=== PATIENT | female | born 1990 | race Hispanic/Latino ===

== ENCOUNTER 2020-07-09 07:33 | Outpatient (CLI) | payer OTHER ==
--- NOTE | 2020-07-09 08:11 | ULT ---
ULTRASOUND OBSTETRICAL COMPLETE: DATE: 07/09/2020 HISTORY: 30-year-old female ICD-10: "O09.892 supervision of other high-risk , second trimest er. Complete anatomy, size and dates, cervical length" FINDINGS: Maternal adnexa: Not visualized. number: [email or web address] lie: Cephalic Maternal cervix: 4 cm. Closed. Placenta: Posterior. No placenta previa. Distal tip of placenta 4.5 cm proximal to the internal cervi nilam os. Amniotic fluid volume: CIERA = 12.5 cm heart rate: 127 bpm The following anatomy is visualized, with no evidence of anomalies: Head, cerebellum, lateral ventricles, four-chamber heart, stomach, kidneys, cord insertion, bladder, cervical spine, thoracic spine, lumbar spine, sacrum, nose and lips, upper extremities, lower extremities, and three-vessel cord. biometry: Biparietal diameter (BPD): 4.7 cm 20 w 1 d Head circumference (HC): 17.1 cm 19 w 5 d Abdominal circumference (AC): 15.3 cm 20 w 4 d Femur length (FL): 3.2 cm 20 w 1 d Average ultrasound age (AUA): 20 w 1 d Estimated date of delivery (RADHA): 11/25/2020 Estimated weight (EFW): 340 g +/- 50 g IMPRESSION: 1) Live 2nd trimester intrauterine gestation. 2) Estimated gestational age of 20 weeks, 1 days 3) Vertex lie. 4) no anatomic abnormality identified.
== END 2020-07-09 07:34 | disposition home or self-care (01) ==
LOC: BICULT 07:33
PROVIDERS: ATTEND Family Medicine
DX: O09.892 Supervision of other high risk pregnancies, second trimester (principal); Z3A.20 20 weeks gestation of pregnancy
CPT/HCPCS: 76805

== ENCOUNTER 2021-01-22 19:30 | Emergency (ER) | payer MEDICAID ==
[2021-01-22] MEDS ORDERED: Ketorolac Tromethamine 30 MG/ML VIAL ONE (21:30)
[2021-01-22] MEDS ORDERED: Clindamycin/D5W 900 mg/50 ml Premix Bag ONE (21:30)
[2021-01-22 21:54] LABS: #Lymphocytes 0.9 thou/uL (1.20-3.40); #Monocytes 0.4 thou/uL (0.11-0.59); %Basophils 0.5 % (0.0-1.0); %Eosinophils 0.2 % (0.0-10.0); %Lymphocytes 21.2 % (21.0-51.0); %Monocytes 9.4 % (0.0-10.0); %Neutrophils 68.7 % (42.0-75.0); Hemoglobin 10.7 g/dL (12.0-16.0); Mean Corpuscular HGB CONC 32.3 g/dL (32.0-36.0); Mean Corpuscular Hemoglobin 26.5 pg (27.0-31.0); Mean Platelet Volume 9.8 fL (7.4-10.4); Platelet Count 262 thou/uL (130-400); RBC Distribution Width 14.1 % (11.5-14.5); Red Blood Cell (RBC) Count 4.01 mill/uL (4.20-5.40); White Blood Cell (WBC) Count 4.4 thou/uL (4.8-10.8)
[2021-01-22 22:16] LABS: ALT (SGPT) 16 U/L (8-55); AST (SGOT) 25 U/L (5-34); Albumin 3.5 g/dL (3.5-5.0); Alkaline Phosphatase 109 U/L (40-110); Anion Gap 10 mmol/L (10-20); BUN (Urea Nitrogen) 8 mg/dL (7.0-18.7); Bilirubin, Total 0.3 mg/dL (0.2-1.2); Calc. Creatinine Clearance 0 mL/min (70-130); Calcium 8.6 mg/dL (7.8-10.44); Carbon Dioxide 25 mmol/L (22-29); Chloride 105 mmol/L (98-107); Globulin 6.4 g/dL (2.4-3.5); Glucose 116 mg/dL (70-105); Potassium 3.7 mmol/L (3.5-5.1); Protein, Total 9.9 g/dL (6.0-8.3); Sodium 136 mmol/L (136-145)
== END 2021-01-22 22:43 | disposition home or self-care (01) ==
LOC: ERS 19:30
DX: L03.115 Cellulitis of right lower limb (principal)
CPT/HCPCS: 80053; 85025; 96365; 96375; J1885; J3490

== ENCOUNTER 2022-11-04 12:46 | Emergency (ER) | payer OTHER, SELFPAY ==
[2022-11-04] MEDS ORDERED: diphenhydrAMINE 25 MG CAP ONE (13:06)
[2022-11-04] MEDS ORDERED: predniSONE 20 MG TAB ONE (14:54)
== END 2022-11-04 14:50 | disposition home or self-care (01) ==
LOC: ERS 12:46
DX: R21 Rash and other nonspecific skin eruption (principal); E03.9 Hypothyroidism, unspecified
CPT/HCPCS: 99282; J7512

== ENCOUNTER 2022-11-06 07:56 | Emergency (ER) | payer SELFPAY ==
[2022-11-06] MEDS ORDERED: Ketorolac Tromethamine 30 MG/ML VIAL ONE (08:49)
[2022-11-06] MEDS ORDERED: Dexamethasone 4 mg/ml Vial ONE (08:49)
[2022-11-06 09:07] LABS: #Basophils 0.1 thou/uL (0.0-0.2); #Monocytes 0.4 thou/uL (0.11-0.59); #Neutrophils 3.7 thou/uL (1.40-6.50); %Basophils 0.9 % (0.0-1.0); %Eosinophils 0.3 % (0.0-10.0); %Lymphocytes 32.8 % (21.0-51.0); %Monocytes 6.8 % (0.0-10.0); %Neutrophils 59.2 % (42.0-75.0); Hemoglobin 11.4 g/dL (12.0-16.0); Mean Corpuscular HGB CONC 33.7 g/dL (32.0-36.0); Mean Corpuscular Hemoglobin 29.1 pg (27.0-31.0); Mean Corpuscular Volume 86.4 fl (78.0-98.0); Mean Platelet Volume 10.9 fL (7.4-10.4); Platelet Count 205 10x3/uL (130-400); RBC Distribution Width 14.3 % (11.5-14.5); Red Blood Cell (RBC) Count 3.92 mill/uL (4.20-5.40); White Blood Cell (WBC) Count 6.2 10x3/uL (4.8-10.8)
[2022-11-06 09:37] LABS: BHCG - Serum Negative (NEGATIVE); Pregs Control Background? CLEAR/WHITE (CLR/WHITE); Pregs Control Bar Appear? YES (CONTROL BAR)
[2022-11-06 09:38] LABS: Calcium 8.1 mg/dL (7.8-10.44); Chloride 109 mmol/L (98-107); Potassium 3.4 mmol/L (3.5-5.1); Sodium 136 mmol/L (136-145)
[2022-11-06 09:39] LABS: Globulin 5.7 g/dL (2.4-3.5); Glucose 99 mg/dL (70-105); Protein, Total 8.7 g/dL (6.0-8.3)
[2022-11-06 09:40] LABS: Anion Gap 11 mmol/L (10-20); Carbon Dioxide 19 mmol/L (22-29)
[2022-11-06 09:41] LABS: Bilirubin, Total 0.3 mg/dL (0.2-1.2)
[2022-11-06 09:42] LABS: Alkaline Phosphatase 81 U/L (40-110)
[2022-11-06 09:43] LABS: BUN (Urea Nitrogen) 10 mg/dL (7.0-18.7); Calc. Creatinine Clearance 0 mL/min (70-130); Estimated GFR 121
[2022-11-06 09:44] LABS: AST (SGOT) 16 U/L (5-34)
[2022-11-06 09:45] LABS: ALT (SGPT) 11 U/L (8-55); CK (CPK) 26 U/L (29-168)
[2022-11-06 10:32] LABS: INR-International Normal Ratio 1.1; Prothrombin Time 14.9 sec (12.0-14.7)
[2022-11-06 10:33] LABS: PTT 33.8 sec (22.9-36.1)
[2022-11-06] MEDS ORDERED: HYDROcodone/Acetaminophen 5/325 mg Tablet ONE (11:24)
[2022-11-06 13:21] LABS: Syphilis Antibody Nonreactive (Nonreactive); Syphilis Antibody Index 0.06 S/CO (<1.00 Non-Reactive)
== END 2022-11-06 12:27 | disposition home or self-care (01) ==
LOC: ERS 07:56
DX: I77.6 Arteritis, unspecified (principal); E03.9 Hypothyroidism, unspecified
CPT/HCPCS: 36415; 71045; 80053; 82550; 83605; 84484; 84703; 85025; 85610; 85730; 86140; 86618; 86780; 93005; 96372; 96374; J1100; J1885

== ENCOUNTER 2025-03-28 06:30 | Inpatient (IN) | payer SELFPAY ==
[2025-03-28 07:24] VITALS: BMI 27.4
[2025-03-28] MEDS ORDERED: Ondansetron PF 4 MG/2 ML Vial IVP PRN (07:55)
[2025-03-28] MEDS ORDERED: Guaifenesin DM 100-10/5 ML UDCUP PO PRN (07:55)
[2025-03-28] MEDS ORDERED: Acetaminophen 325 MG TAB PO PRN (07:55)
[2025-03-28] MEDS ORDERED: Senokot S 8.6-50 MG TAB PO PRN (07:55)
[2025-03-28] MEDS: Enoxaparin 40 MG (0.4 mL) SYRINGE SC SCH (08:33)
[2025-03-28 08:43] LABS: Anion Gap 10 mmol/L (10-20); BUN (Urea Nitrogen) 4 mg/dL (7.0-18.7); Calc. Creatinine Clearance 186 mL/min (70-130); Calcium 8.2 mg/dL (7.8-10.44); Carbon Dioxide 21 mmol/L (22-29); Chloride 101 mmol/L (98-107); Glucose 95 mg/dL (70-105); Magnesium 1.5 mg/dL (1.6-2.6); Potassium 3.3 mmol/L (3.5-5.1); Sodium 129 mmol/L (136-145)
[2025-03-28] MEDS: Pantoprazole 40 MG DR.TAB PO SCH (09:21)
[2025-03-28] MEDS ORDERED: Iopamidol-370 76% 500 ML MDV (1 ML CHARGE) ONE (11:22)
[2025-03-28 12:10] LABS: Bacteria/HPF None Seen HPF (None Seen); CAUTI Indications for Culture Fever or rigors; Glucose, Urine (Dipstick) Normal (Negative); Leukocyte Negative Leu/uL (Negative); Protein, Urine (Dipstick) Negative (Neg-Trace); RBC/HPF 0-3 HPF (0-3); Specific Gravity, Urine 1.007 (1.002-1.036); WBC/HPF 0-3 HPF (0-3)
[2025-03-28 12:15] LABS: Urine Culture Reflex No No
[2025-03-29 06:01] LABS: Anion Gap 9 mmol/L (10-20); BUN (Urea Nitrogen) 5 mg/dL (7.0-18.7); Calc. Creatinine Clearance 153 mL/min (70-130); Calcium 8.2 mg/dL (7.8-10.44); Carbon Dioxide 21 mmol/L (22-29); Chloride 106 mmol/L (98-107); Glucose 95 mg/dL (70-105); Potassium 3.9 mmol/L (3.5-5.1); Sodium 132 mmol/L (136-145)
[2025-03-29 07:07] LABS: #Basophils Less than 0.03 10x3/uL (0.0-0.2); #Eosinophils Less than 0.03 10x3/uL (0.0-0.7); #Monocytes 0.39 10x3/uL (0.11-0.59); #Neutrophils 1.21 10x3/uL (1.40-6.50); %Basophils 0.4 % (0.0-1.0); %Eosinophils 0.8 % (0.0-10.0); %Lymphocytes 31.8 % (21.0-51.0); %Monocytes 16.3 % (0.0-10.0); %Neutrophils 50.7 % (42.0-75.0); Hematocrit 28.0 % (36.0-47.0); Hemoglobin 9.4 g/dL (12.0-16.0); Mean Corpuscular Hemoglobin 27.9 pg (27.0-31.0); Mean Corpuscular Volume 83.1 fL (78.0-98.0); Platelet Count 207 10x3/uL (130-400); Red Blood Cell (RBC) Count 3.37 mill/uL (4.20-5.40); White Blood Cell (WBC) Count 2.39 10x3/uL (4.8-10.8)
[2025-03-29] MEDS: Pantoprazole 40 MG DR.TAB PO SCH (09:15)
[2025-03-29 11:52] VITALS: BP 105/74; TEMP 98.1
== END 2025-03-29 13:30 | disposition home or self-care (01) | DRG 392 ==
LOC: 2NO 06:56
PROVIDERS: ADMIT Hospitalist; ATTEND Student in an Organized Health Care Education/Training Program
DX: K21.9 Gastro-esophageal reflux disease without esophagitis (principal); E87.1 Hypo-osmolality and hyponatremia; E83.42 Hypomagnesemia; E87.6 Hypokalemia; E03.9 Hypothyroidism, unspecified; R63.0 Anorexia; F43.21 Adjustment disorder with depressed mood; Z98.890 Other specified postprocedural states; Z90.49 Acquired absence of other specified parts of digestive tract; Z79.890 Hormone replacement therapy
CPT/HCPCS: 36415; 74177; 80048; 83735; 84100; 85025; J1650; J3475; J7030; Q9967

== ENCOUNTER 2025-04-14 20:05 | Inpatient (IN) | payer SELFPAY ==
[~2025-04-14 20:05] MED LIST: Iopamidol-370 76% 500 ML MDV (1 ML CHARGE) ONE
[2025-04-14 20:49] LABS: #Basophils Less than 0.03 10x3/uL (0.0-0.2); #Eosinophils Less than 0.03 10x3/uL (0.0-0.7); #Monocytes 0.44 10x3/uL (0.11-0.59); #Neutrophils 3.91 10x3/uL (1.40-6.50); %Basophils 0.2 % (0.0-1.0); %Eosinophils 0.0 % (0.0-10.0); %Lymphocytes 10.6 % (21.0-51.0); %Monocytes 9.0 % (0.0-10.0); %Neutrophils 80.0 % (42.0-75.0); Hematocrit 37.2 % (36.0-47.0); Hemoglobin 12.7 g/dL (12.0-16.0); Mean Corpuscular Hemoglobin 27.3 pg (27.0-31.0); Mean Corpuscular Volume 80.0 fL (78.0-98.0); Platelet Count 258 10x3/uL (130-400); Red Blood Cell (RBC) Count 4.65 mill/uL (4.20-5.40); White Blood Cell (WBC) Count 4.89 10x3/uL (4.8-10.8)
[2025-04-14 21:05] LABS: ALT (SGPT) 24 U/L (Less than 34); AST (SGOT) 38 U/L (11-34); Albumin 4.2 g/dL (3.1-4.5); Alkaline Phosphatase 99 U/L (40-110); Anion Gap 16 mmol/L (10-20); BUN (Urea Nitrogen) 6 mg/dL (7.0-18.7); Bilirubin, Total 0.4 mg/dL (0.3-1.2); Calc. Creatinine Clearance 0 mL/min (70-130); Calcium 9.9 mg/dL (7.8-10.44); Carbon Dioxide 19 mmol/L (22-29); Chloride 89 mmol/L (98-107); Globulin 7.5 g/dL (2.4-3.5); Glucose 146 mg/dL (70-105); Magnesium 1.7 mg/dL (1.6-2.6); Potassium 3.5 mmol/L (3.5-5.1); Sodium 120 mmol/L (136-145)
[2025-04-14] MEDS ORDERED: Ondansetron PF 4 MG/2 ML Vial ONE (21:40)
[2025-04-14 22:27] LABS: BHCG - Serum Negative (NEGATIVE); Pregs Control Background? CLEAR/WHITE (CLR/WHITE); Pregs Control Bar Appear? YES (CONTROL BAR)
[2025-04-15] MEDS ORDERED: Acetaminophen 325 MG TAB PO PRN (00:49)
[2025-04-15] MEDS ORDERED: Ondansetron PF 4 MG/2 ML Vial IVP PRN (00:49)
[2025-04-15] MEDS ORDERED: Methocarbamol 500 MG TAB PO PRN (01:38)
[2025-04-15 02:28] VITALS: BMI 25.0
[2025-04-15 04:34] LABS: #Basophils Less than 0.03 10x3/uL (0.0-0.2); #Eosinophils Less than 0.03 10x3/uL (0.0-0.7); #Monocytes 0.54 10x3/uL (0.11-0.59); #Neutrophils 2.72 10x3/uL (1.40-6.50); %Basophils 0.3 % (0.0-1.0); %Eosinophils 0.3 % (0.0-10.0); %Lymphocytes 16.7 % (21.0-51.0); %Monocytes 13.7 % (0.0-10.0); %Neutrophils 68.7 % (42.0-75.0); Hematocrit 30.9 % (36.0-47.0); Hemoglobin 10.6 g/dL (12.0-16.0); Mean Corpuscular Hemoglobin 27.7 pg (27.0-31.0); Mean Corpuscular Volume 80.7 fL (78.0-98.0); Platelet Count 223 10x3/uL (130-400); Red Blood Cell (RBC) Count 3.83 mill/uL (4.20-5.40); White Blood Cell (WBC) Count 3.95 10x3/uL (4.8-10.8)
[2025-04-15 05:14] LABS: Anion Gap 10 mmol/L (10-20); BUN (Urea Nitrogen) 5 mg/dL (7.0-18.7); Calc. Creatinine Clearance 167 mL/min (70-130); Calcium 8.3 mg/dL (7.8-10.44); Carbon Dioxide 20 mmol/L (22-29); Chloride 98 mmol/L (98-107); Glucose 106 mg/dL (70-105); Potassium 3.4 mmol/L (3.5-5.1); Sodium 125 mmol/L (136-145)
[2025-04-15] MEDS: Famotidine/PF 20 mg/2ml Vial SLOW IVP SCH (08:15)
[2025-04-15] MEDS: Enoxaparin 40 MG (0.4 mL) SYRINGE SC SCH (08:15)
[2025-04-15] MEDS: D5 0.9% NS w/ 20 mEq KCl 1,000 ML IV SCH (10:57)
[2025-04-15 11:00] LABS: Anion Gap 12 mmol/L (10-20); BUN (Urea Nitrogen) 5 mg/dL (7.0-18.7); Calc. Creatinine Clearance 154 mL/min (70-130); Calcium 8.2 mg/dL (7.8-10.44); Carbon Dioxide 21 mmol/L (22-29); Chloride 99 mmol/L (98-107); Glucose 99 mg/dL (70-105); Potassium 3.5 mmol/L (3.5-5.1); Sodium 128 mmol/L (136-145)
[2025-04-15 14:03] VITALS: BMI 25.0
[2025-04-15] MEDS: D5 1/2 NS w/20 mEq KCL 1,000 ML IV SCH ×2 (17:42→17:49)
[2025-04-15] MEDS: Pantoprazole 40 MG VIAL IVP SCH (21:38)
[2025-04-16 06:55] LABS: Free T4 (Free Thyroxine) 1.03 ng/dL (0.70-1.48); Thyroid Stimulating Hormone 3.6976 uIU/mL (0.35-4.94)
[2025-04-16] MEDS ORDERED: fentaNYL PF 100 MCG/2 ML SYRINGE ONE (08:08)
[2025-04-16] MEDS ORDERED: Ketamine In 0.9 % NaCl 50 MG/5 ML SYRINGE ONE (08:09)
[2025-04-16] MEDS ORDERED: PROPOFOL 40 ML ONE (08:09)
[2025-04-16] MEDS ORDERED: Lidocaine 1% PF 5 ML VIAL ONE (08:20)
[2025-04-16] MEDS ORDERED: Rocuronium Bromide 10 MG/ML (10ML VIAL) ONE (08:20)
[2025-04-16] MEDS ORDERED: SUGAMMADEX SODIUM 200 MG/2 ML VIAL ONE (08:41)
[2025-04-16 11:52] LABS: Magnesium 1.6 mg/dL (1.6-2.6)
[2025-04-16] MEDS: Polyvinyl Alcohol 1.4%/Povidone 0.6% Opth Drops EA EYE SCH (14:19)
[2025-04-17 06:24] LABS: Anion Gap 6 mmol/L (10-20); BUN (Urea Nitrogen) 6 mg/dL (7.0-18.7); Calc. Creatinine Clearance 167 mL/min (70-130); Calcium 8.0 mg/dL (7.8-10.44); Carbon Dioxide 21 mmol/L (22-29); Chloride 104 mmol/L (98-107); Glucose 128 mg/dL (70-105); Magnesium 1.5 mg/dL (1.6-2.6); Potassium 3.4 mmol/L (3.5-5.1); Sodium 128 mmol/L (136-145)
[2025-04-17] MEDS: Potassium Chloride 10 MEQ in Premix 1 BAG IVPB SCH (08:57)
[2025-04-17] MEDS: Magnesium 2 GM/50 ML(in water) 2 GM in Premix 1 BAG IVPB SCH (13:49)
[2025-04-17 15:13] LABS: A/G Ratio 0.6 (0.7-1.7); Albumin 3.1 g/dL (2.9-4.4); Alpha 1 0.2 g/dL (0.0-0.4); Alpha 2 0.5 g/dL (0.4-1.0); Beta 1.1 g/dL (0.7-1.3); Gamma 3.6 g/dL (0.4-1.8); Globulin, Total 5.4 g/dL (2.2-3.9); M-Spike Not Observed g/dL (Not Observed); Protein Electrophoresis Intrp Note: (.)
[2025-04-17] MEDS: Benzocaine 20% Spray 60 ML CAN PO SCH (20:01)
[2025-04-18 05:38] LABS: Anion Gap 7 mmol/L (10-20); BUN (Urea Nitrogen) 4 mg/dL (7.0-18.7); Calc. Creatinine Clearance 149 mL/min (70-130); Calcium 8.5 mg/dL (7.8-10.44); Carbon Dioxide 22 mmol/L (22-29); Chloride 106 mmol/L (98-107); Glucose 108 mg/dL (70-105); Potassium 3.7 mmol/L (3.5-5.1); Sodium 131 mmol/L (136-145)
[2025-04-18 11:38] LABS: Albumin-Ur 16.1 % (.); Alpha 1 - Ur 3.8 % (.); Alpha 2 - Ur 13.8 % (.); Beta-Ur 36.2 % (.); Gamma-Ur 30.1 % (.); M-Spike,% Not Observed % (Not Observed); Protein, Urine 69.6 mg/dL (Not Estab.)
[2025-04-18 15:26] VITALS: BP 110/78; TEMP 98.1
== END 2025-04-18 17:49 | disposition home or self-care (01) | DRG 380 ==
LOC: ERS 20:05 → 2NO 22:37 → SURG A 04-15 20:59
PROVIDERS: ADMIT Internal Medicine; ATTEND Emergency Medicine
PROC: 0DB68ZX Excision of Stomach, Via Natural or Artificial Opening Endoscopic, Diagnostic (ICD-10-PCS; principal; 2025-04-16)
DX: K31.1 Adult hypertrophic pyloric stenosis (principal); E43 Unspecified severe protein-calorie malnutrition; K55.1 Chronic vascular disorders of intestine; E87.1 Hypo-osmolality and hyponatremia; K21.9 Gastro-esophageal reflux disease without esophagitis; E03.9 Hypothyroidism, unspecified; Z90.49 Acquired absence of other specified parts of digestive tract; R63.4 Abnormal weight loss; E87.6 Hypokalemia; M35.00 Sjogren syndrome, unspecified; Z68.28 Body mass index [BMI] 28.0-28.9, adult; Z79.899 Other long term (current) drug therapy
CPT/HCPCS: 36415; 71045; 74018; 74177; 80048; 80053; 83605; 83735; 84155; 84156; 84165; 84166; 84439; 84443; 84481; 84484; 84703; 85025; 88305; 88342; 93005; 94760; 96374; J1100; J1308; J1650; J2405; J2470; J2704; J3480; J3490; J7030; Q9967